=== PATIENT | female | born 1940 | race Hispanic/Latino ===

== ENCOUNTER 2023-03-15 18:00 | Inpatient (IN) | payer MEDICARE ==
[2023-03-15] MEDS ORDERED: Glucagon 1 MG/ML KIT IM PRN (20:19)
[2023-03-15] MEDS ORDERED: Dextrose 5% in Water 1,000 ML IV PRN (20:19)
[2023-03-15] MEDS ORDERED: Guaifenesin DM 100-10/5 ML UDCUP PO PRN (20:19)
[2023-03-15] MEDS ORDERED: Senokot S 8.6-50 MG TAB PO PRN (20:19)
[2023-03-15] MEDS ORDERED: Acetaminophen 325 MG TAB PO PRN (20:19)
[2023-03-15] MEDS ORDERED: Ondansetron PF 4 MG/2 ML Vial IVP PRN (20:19)
[2023-03-15] MEDS ORDERED: Calcium Carbonate 500 MG ChewTAB PO PRN (20:19)
[2023-03-15] MEDS ORDERED: Dextrose 50% Abboject 50 ML SYRINGE SLOW IVP PRN (20:19)
[2023-03-15] MEDS ORDERED: traMADol HCl 50 MG TAB PO PRN (20:23)
[2023-03-15] MEDS ORDERED: Sodium Chloride 0.9% 1,000 ML IV SCH (20:30)
[2023-03-15 20:32] VITALS: BMI 18.9
[2023-03-15] MEDS ORDERED: diphenhydrAMINE 25 MG CAP PO PRN (20:36)
[2023-03-15] MEDS: Lantus 1000 UNITS/10 ML VIAL SC SCH (20:49)
[2023-03-15] MEDS: HumaLOG 300 UNITS/3 ML VIAL SC PRN (20:50)
[2023-03-16] MEDS: HumaLOG 300 UNITS/3 ML VIAL SC PRN ×5 (01:33→20:47)
[2023-03-16 04:16] LABS: ALT (SGPT) 28 U/L (8-55); AST (SGOT) 14 U/L (5-34); Alkaline Phosphatase 94 U/L (40-110); Anion Gap 13 mmol/L (10-20); BUN (Urea Nitrogen) 10 mg/dL (9.8-20.1); Bilirubin, Total 0.5 mg/dL (0.2-1.2); CRP (Inflammatory) 12.04 mg/dL (= or < 0.5); Calc. Creatinine Clearance 64 mL/min (70-130); Carbon Dioxide 21 mmol/L (23-31); Chloride 101 mmol/L (98-107); Estimated GFR 92; Globulin 3.1 g/dL (2.4-3.5); Glucose 268 mg/dL (83-110); Potassium 3.9 mmol/L (3.5-5.1); Protein, Total 6.1 g/dL (5.8-8.1); Sodium 131 mmol/L (136-145)
[2023-03-16 04:27] LABS: Hematocrit 33.5 % (34.9-44.5); Hemoglobin 11.4 g/dL (12.0-15.5); MDiff Complete? YES; Mean Corpuscular Hemoglobin 28.5 pg (27.0-33.0); Mean Corpuscular Volume 83.8 fl (81.6-98.3); Mean Platelet Volume 10.3 fl (7.4-10.4); Platelet Count 203 10x3/uL (150-450); White Blood Cell (WBC) Count 5.3 10x3/uL (3.5-10.5)
[2023-03-16 05:25] LABS: Band 8 % (5-11); Lymphocytes 14 % (21-51); Monocytes 3 % (0-10); Neutrophil 73 % (42-75); Reactive Lymphocytes 2 % (0-10)
[2023-03-16 05:27] LABS: Platelet Adequacy Comment Appears Adequate; RBC Morph Comment Within Normal Limits
[2023-03-16] MEDS: Atorvastatin Calcium 10 MG TAB PO SCH (10:31)
[2023-03-16] MEDS: predniSONE 20 MG TAB PO SCH (10:31)
[2023-03-16] MEDS: cefTRIAXone\\ROCEPHIN 2 GM in Sodium Chloride 0.9% 100 ML IVPB SCH (10:31)
[2023-03-16] MEDS: Loratadine 10 MG TAB PO SCH (10:31)
[2023-03-16] MEDS: Enoxaparin 40 MG (0.4 mL) SYRINGE SC SCH (10:32)
[2023-03-16] MEDS: Lantus 1000 UNITS/10 ML VIAL SC SCH ×2 (10:33→20:45)
[2023-03-16 13:16] LABS: Hemoglobin A1c 11.3 % (4.0-6.0)
[2023-03-16] MEDS ORDERED: Amlodipine 5 MG TAB PO SCH (14:00)
[2023-03-16] MEDS: Sodium Chloride 0.9% 1,000 ML IV SCH (15:13)
[2023-03-17] MEDS ORDERED: Amlodipine 5 MG TAB PO SCH (09:00)
[2023-03-17 09:36] VITALS: BP 174/74; TEMP 97.6
[2023-03-17] MEDS: Atorvastatin Calcium 10 MG TAB PO SCH (10:15)
[2023-03-17] MEDS: Loratadine 10 MG TAB PO SCH (10:15)
[2023-03-17] MEDS: Enoxaparin 40 MG (0.4 mL) SYRINGE SC SCH (10:16)
[2023-03-17] MEDS: cefTRIAXone\\ROCEPHIN 2 GM in Sodium Chloride 0.9% 100 ML IVPB SCH (10:16)
[2023-03-17] MEDS: Lantus 1000 UNITS/10 ML VIAL SC SCH (10:18)
[2023-03-17] MEDS: predniSONE 20 MG TAB PO SCH (10:29)
[2023-03-17] MEDS: Sodium Chloride 0.9% 1,000 ML IV SCH (10:30)
== END 2023-03-17 11:26 | disposition home or self-care (01) | DRG 640 ==
LOC: UNDOADMIN 18:00 → CSHTELE 18:00 → OBSVTOIN 20:19
PROVIDERS: ADMIT Internal Medicine; ATTEND Family Medicine
DX: E86.0 Dehydration (principal); G93.41 Metabolic encephalopathy; R53.2 Functional quadriplegia; N39.0 Urinary tract infection, site not specified; M31.0 Hypersensitivity angiitis; E11.65 Type 2 diabetes mellitus with hyperglycemia; E87.1 Hypo-osmolality and hyponatremia; E87.6 Hypokalemia; E11.51 Type 2 diabetes mellitus with diabetic peripheral angiopathy without gangrene; G89.29 Other chronic pain; M81.0 Age-related osteoporosis without current pathological fracture; I10 Essential (primary) hypertension; E78.5 Hyperlipidemia, unspecified; M19.90 Unspecified osteoarthritis, unspecified site; K21.9 Gastro-esophageal reflux disease without esophagitis; E88.09 Other disorders of plasma-protein metabolism, not elsewhere classified; Z88.8 Allergy status to other drugs, medicaments and biological substances; Z91.040 Latex allergy status; Z79.4 Long term (current) use of insulin; Z79.899 Other long term (current) drug therapy; Z74.01 Bed confinement status; Z90.710 Acquired absence of both cervix and uterus; Z98.890 Other specified postprocedural states
CPT/HCPCS: 36415; 36416; 76705; 80053; 83036; 83516; 84443; 85025; 86037; 86038; 86140; 86225; J0696; J1650; J1815; J3490; J7050; J7512